=== PATIENT | female | born 1960 | race African-American/Black ===

== ENCOUNTER 2017-03-18 22:05 | Inpatient (IN) | payer OTHER ==
[~2017-03-18] VITALS: Ht 175.3 cm; Wt 76.2 kg
[2017-03-18] MEDS ORDERED: MORPHINE SULFATE 4 MG/ML CPJ (NOT FOR IM USE) IV STA (22:42)
[2017-03-18] MEDS ORDERED: FAMOTIDINE 20MG/2ML VIAL IV STA (22:42)
[2017-03-18] MEDS ORDERED: ONDANSETRON HCL 4MG/2ML VIAL IV STA (22:42)
[2017-03-18] MEDS: MORPHINE SULFATE 2 MG/ML CPJ (NOT FOR IM USE) IV SCH (23:12)
[2017-03-18 23:16] LABS: BASOPHILS % 0.9 % (0.0-2.0); EOSINOPHILS % 1.7 % (0.0-5.0); HEMATOCRIT. 36.5 % (36.0-48.0); HEMOGLOBIN. 12.2 g/dL (12.0-16.0); LYMPHOCYTES % 28.9 % (20.0-50.0); MEAN CORPUSCULAR HEMOGLOBIN 26.8 pg (28.0-32.0); MEAN CORPUSCULAR VOLUME 79.7 fL (81.0-99.0); MEAN PLATELET VOLUME 8.5 fl (7.4-10.4); MONOCYTES % 10.8 % (2.0-8.0); NEUTROPHILS % 57.7 % (40.0-76.0); PLATELET 193 x1000/uL (130-400); RED BLOOD CELL COUNT 4.57 mill/uL (4.2-5.4); RED CELL DISTRIBUTION WIDTH 13.7 % (11.6-14.6)
[2017-03-18 23:22] LABS: CHLORIDE 109 mEq/L (98-107); PROTHROMBIN TIME 10.6 sec (9.4-11.6)
[2017-03-18 23:25] LABS: CARBON DIOXIDE 22 mEq/L (21-32); ETHANOL BLOOD < 10 mg/dL
[2017-03-18 23:32] LABS: TROPONIN I < 0.02 ng/mL (0.00-0.04)
[2017-03-19] MEDS ORDERED: FENTANYL CITRATE/PF 50MCG/ML 2ML VIAL IV ONE (00:15)
[2017-03-19 03:25] LABS: CLARITY URINE CLOUDY (CLEAR); COLOR URINE YELLOW (YELLOW); GLUCOSE URINE NEGATIVE (NEGATIVE); KETONES URINE 3+ (NEGATIVE); LEUKOCYTE ESTERASE URINE NEGATIVE (NEGATIVE); NITRITE URINE NEGATIVE (NEGATIVE); OCCULT BLOOD URINE NEGATIVE (NEGATIVE); PROTEIN URINE NEGATIVE (NEGATIVE); SPECIFIC GRAVITY URINE 1.017 (1.005-1.030); UROBILINOGEN URINE 0.2 E.U./dL (0.2-1.0)
[2017-03-19] MEDS: MORPHINE SULFATE 2 MG/ML CPJ (NOT FOR IM USE) IV SCH (03:35)
[2017-03-19] MEDS ORDERED: KCL 20MEQ/100ML PREMIX 100 ML IV SCH (03:43)
[2017-03-19 04:30] LABS: *AMPHETAMINES SCREEN URINE NEGATIVE (NEGATIVE); *BARBITURATES SCREEN URINE NEGATIVE (NEGATIVE); *BENZODIAZEPINES SCREEN URINE NEGATIVE (NEGATIVE); *COCAINE SCREEN URINE NEGATIVE (NEGATIVE); CANNABINOID URINE SCREEN NEGATIVE (NEGATIVE); METHADONE URINE SCREEN NEGATIVE (NEGATIVE); OPIATES URINE SCREEN PRESUMTIVE POSITIVE (NEGATIVE); PHENCYCLIDINE URINE SCREEN NEGATIVE (NEGATIVE)
[2017-03-19 08:00] VITALS: BP 114/82
[2017-03-19] MEDS ORDERED: ONDANSETRON HCL 4MG/2ML VIAL IV PRN (08:30)
[2017-03-19] MEDS: DEXT 5%/0.45% NACL 1000ML 1,000 ML IV SCH ×2 (08:30→21:02)
[2017-03-19] MEDS: MORPHINE SULFATE 2 MG/ML CPJ (NOT FOR IM USE) IV PRN ×2 (08:39→17:09)
[2017-03-19] MEDS: PANTOPRAZOLE SODIUM 40 MG/VIAL IV SCH (09:00)
[2017-03-19 10:00] VITALS: BP 114/82
[2017-03-19] MEDS ORDERED: LEVO200T8 PO (11:19)
[2017-03-19] MEDS ORDERED: TAMO20TA4 PO (11:19)
[2017-03-19] MEDS ORDERED: PROP80CA2 PO (11:19)
[2017-03-19 12:00] VITALS: BP 121/86
[2017-03-19] MEDS: HYDROCODONE/ACETAMINOPHEN 5/325MG TABLET PO PRN (12:24)
[2017-03-19] MEDS ORDERED: RIZA10TA26 PO (12:46)
[2017-03-19] MEDS ORDERED: RIZATRIPTAN BENZOATE 10 MG PO PRN (13:15)
[2017-03-19] MEDS: TAMOXIFEN 10MG TABLET PO SCH (14:51)
[2017-03-19] MEDS: LEVOTHYROXINE SODIUM 200MCG TABLET PO SCH (14:51)
[2017-03-19] MEDS: PROPRANOLOL HCL 10MG TABLET PO SCH ×2 (14:51→21:02)
[2017-03-19] MEDS: METRONIDAZOLE 500 MG PREMIX 100 ML IV SCH ×2 (14:52→22:03)
[2017-03-19 16:00] VITALS: BP 104/66
[2017-03-19] MEDS: LEVOFLOXACIN 500MG PREMIX 100 ML IV SCH (17:09)
[2017-03-19] MEDS: SUMATRIPTAN SUCCINATE 25MG TABLET PO PRN ×2 (18:43→23:17)
[2017-03-19 20:00] VITALS: BP 115/81
[2017-03-20] VITALS: BP 120/88
[2017-03-20] MEDS: MORPHINE SULFATE 2 MG/ML CPJ (NOT FOR IM USE) IV PRN ×2 (00:40→18:04)
[2017-03-20 04:00] VITALS: BP 120/88
[2017-03-20] MEDS: SUMATRIPTAN SUCCINATE 25MG TABLET PO PRN ×4 (05:06→16:47)
[2017-03-20] MEDS: METRONIDAZOLE 500 MG PREMIX 100 ML IV SCH ×2 (06:21→14:14)
[2017-03-20 06:46] LABS: HEMATOCRIT. 33.4 % (36.0-48.0); HEMOGLOBIN. 11.2 g/dL (12.0-16.0); MEAN CORPUSCULAR HEMOGLOBIN 26.9 pg (28.0-32.0); MEAN CORPUSCULAR VOLUME 79.8 fL (81.0-99.0); MEAN PLATELET VOLUME 9.1 fl (7.4-10.4); PLATELET 177 x1000/uL (130-400); RED BLOOD CELL COUNT 4.18 mill/uL (4.2-5.4); RED CELL DISTRIBUTION WIDTH 13.6 % (11.6-14.6)
[2017-03-20 07:10] LABS: CARBON DIOXIDE 28 mEq/L (21-32); CHLORIDE 108 mEq/L (98-107); PHOSPHORUS 3.2 mg/dL (2.5-4.9)
[2017-03-20 08:12] VITALS: BP 108/71
[2017-03-20] MEDS: LEVOTHYROXINE SODIUM 200MCG TABLET PO SCH (08:22)
[2017-03-20] MEDS: TAMOXIFEN 10MG TABLET PO SCH (08:22)
[2017-03-20] MEDS: PANTOPRAZOLE SODIUM 40 MG/VIAL IV SCH (08:24)
[2017-03-20] MEDS: PROPRANOLOL HCL 10MG TABLET PO SCH ×2 (09:00→12:17)
[2017-03-20] MEDS ORDERED: TAMSULOSIN HCL 0.4MG SR CAPSULE PO SCH (10:30)
[2017-03-20] MEDS: DEXT 5%/0.45% NACL 1000ML 1,000 ML IV SCH (10:48)
[2017-03-20] MEDS ORDERED: LACTULOSE 20G/30ML UDC PO NR (11:00)
[2017-03-20 12:00] VITALS: BP 120/88
[2017-03-20] MEDS: HYDROCODONE/ACETAMINOPHEN 5/325MG TABLET PO PRN (14:14)
[2017-03-20] MEDS: LEVOFLOXACIN 500MG PREMIX 100 ML IV SCH (14:14)
[2017-03-20 16:00] VITALS: BP 115/76
[2017-03-20 18:47] LABS: ATYPICAL LYMPHOCYTES 1; PLATELET ESTIMATE NORMAL
[2017-03-20 19:45] VITALS: BP 117/76
[2017-03-21] MEDS ORDERED: FAMOTIDINE 20MG TABLET PO SCH (07:40)
[2017-03-21] MEDS ORDERED: DOCUSATE SODIUM 250MG CAPSULE PO SCH (09:00)
== END 2017-03-20 20:15 | disposition short-term general hospital (02) | DRG 694 ==
LOC: ER 22:05 → 7WST 03-19 02:45 → EDBD 03-19 02:45 → ENRESERV 03-19 05:04 → ER 03-19 06:00
PROVIDERS: ADMIT Family Medicine Adult Medicine; ATTEND Family Medicine Adult Medicine
DX: N20.2 Calculus of kidney with calculus of ureter (principal); N17.9 Acute kidney failure, unspecified; E03.9 Hypothyroidism, unspecified; E87.6 Hypokalemia; Z90.710 Acquired absence of both cervix and uterus; Z98.84 Bariatric surgery status
CPT/HCPCS: 36415; 71010; 74176; 80048; 80053; 80076; 80305; 81001; 83605; 83690; 83735; 83880; 84100; 84443; 84484; 85025; 85610; 96374; 96375; 96376; 99285; C9113; G0482; J1956; J2270; J2405; J3010; J3480; J3490